=== PATIENT | female | born 1965 | race Caucasian/White ===

== ENCOUNTER → 2017-08-17 08:45 | Outpatient (CLI) | payer BC, SELFPAY ==
--- NOTE | 2017-08-17 08:46 | MM_ITS ---
MM Dig screening mamm BI w/CAD CAD Screening ORDERING PHYSICIAN : Stevan Martinez MD PATIENT AGE: 52 years GENDER: Female COMPARISON: Previous mammograms: January 2016 and January 2014 and July 2011 INDICATION: Routine screening. Patient does taking female hormones.. No new complaints. Family history maternal grandmother and maternal great grandmother with breast cancer. TECHNIQUE: Standard CC and MLO images were obtained. R2 CAD reviewed. Added left axillary cc view included on left FINDINGS: Prior films are helpful and supportive stability CAD computer review highlights no new areas concern in either breast RIGHT BREAST:No significant new findings. Follow-up one year LEFT BREAST:No significant new findings The long-standing asymmetric island of glandular tissue at the far axillary left breast is again noted and stable .....IMPRESSION: ... Stable bilateral mammogram with no significant new findings. Stable asymmetry. Follow-up one year recommended BI-RADS Category: 2 Benign Finding(s) RECOMMENDED FOLLOW-UP: 1YR - 1 YEAR FOLLOW-UP (A letter has been sent to the patient regarding results of the study.)
== END ==
PROVIDERS: Family Provider Obstetrics & Gynecology; PCP Obstetrics & Gynecology; Visit Provider Obstetrics & Gynecology
DX: Z12.31 Encounter for screening mammogram for malignant neoplasm of breast (principal)
CPT/HCPCS: 77067

== ENCOUNTER → 2017-09-12 09:55 | Outpatient (CLI) | payer BC, SELFPAY ==
[2017-09-12 12:32] LABS: Glucose,Random 89 mg/dL (70-110)
== END ==
PROVIDERS: Family Provider Obstetrics & Gynecology; PCP Obstetrics & Gynecology; Visit Provider Obstetrics & Gynecology
DX: E11.9 Type 2 diabetes mellitus without complications (principal)
CPT/HCPCS: 36415; 82947

== ENCOUNTER → 2017-12-28 14:57 | Outpatient (CLI) | payer BC, SELFPAY ==
[2018-01-01 12:53] LABS: Estradiol 24.6 pg/mL (.)
== END ==
PROVIDERS: PCP Family Medicine; Visit Provider Obstetrics & Gynecology
DX: E25.9 Adrenogenital disorder, unspecified (principal)
CPT/HCPCS: 36415; 82670

== ENCOUNTER 2021-05-07 12:39 | Emergency (ER) | payer BC, SELFPAY ==
[2021-05-07 15:14] VITALS: BP 147/96; PULSE 72; RESP 20; TEMP 36.8; O2SAT 98; BMI 25.4
--- NOTE | 2021-05-07 15:23 | HMH.EDUTC ---
[facility] [place] Clinical Impression: Viral syndrome, Exposure to COVID-19 virus Pharyngitis Qualifiers: Pharyngitis/tonsillitis etiology: unspecified etiology Qualified Code(s): J02.9 - Acute pharyngitis, unspecified Disposition: Home, Self-Care Condition on Discharge: Good Instructions: DI for Pharyngitis/Tonsillopharyngitis -- Child, DI for COVID-19 (Suspected or Confirmed ), Preventing the Spread of Coronavirus Discharge Instructions Additional Instructions: Drink plenty of fluids. Take tylenol or ibuprofen for pain or fever. Take the medications as directed. Follow up with your regular doctor. GO TO THE ER FOR ANY WORSENING SYMPTOMS Quarantine until you know the results of your covid-19 test. If it is positive, the health department should call you and give you further instructions about your length of Quarantine and other things. Notify your school or workplace of your results and follow their instructions regarding return to work/school. Prescriptions: Benzonatate [Benzonatate 100mg cap] 100 mg PO TIDP PRN #30 cap PRN Reason: Cough Transmission Status: Pending to [facility] methylPREDNISolone [Medrol] 4 mg PO DIRECTED 6 Days #21 packet Transmission Status: Pending to [facility] Cefdinir [Omnicef 300mg Capsule] 300 mg PO BID #20 cap Transmission Status: Pending to [facility] Referrals: Keny Pate [Primary Care Provider] - Forms: Work/School Release Time of Disposition: 15:43 Medical Decision Making - Medical Records Medical records reviewed: No: I reviewed the patient's medical records. - [place] Inquiry Pt receiving controlled substance: No Vital Signs: 05/07/21 15:14 Temperature 98.2 F Temperature Source Oral Pulse Rate [Right Radial] 72 Respiratory Rate 20 Blood Pressure [Right Arm] 147/96 H Blood Pressure Mean [Right Arm] 113 Blood Pressure Source [Right Arm] Automatic Cuff Blood Pressure Position [Right Arm] Sitting 02 Sat by Pulse Oximetry 98 Oxygen Delivery Method Room Air - Lab Data Lab results reviewed: Yes: I reviewed the patient's lab results. Lab Results 05/07/21 15:07: Strep Scn Rapid Clinic Negative Orders (Tests/Meds): ORDERS Category Date Time Status Covid-19 Nasal PCR ([facility]) Routine Lab 05/07/21 15:07 Ordered Strep Screen Confirmation Stat Micro 05/07/21 15:07 Received [facility] [place] - General Stated complaint: sore throat, weakness, soa, headache abdominal stan Time Seen by Provider: 05/07/21 15:23 Mode of Arrival: Ambulatory Limitations: No Limitations Description of Symptoms (Recalled from Triage Doc. by RN): pt c/o sore throat, jacek ear pain, head congestion, v/d since Monday of this week. Pt reports exposure to covid in the past 2 weeks HEENT Symptoms (Recalled from RN notes): Yes (c/o jacek ear pain, head congestion and sore throat) Resp Symptoms (Recalled from RN notes): No Skin Symptoms (Recalled from RN notes): No MS Symptoms (Recalled from RN notes): No Functional Status (Recalled from RN notes): n/a - History of Present Illness Provider Complaint: She states that she has had a sore throar for the past 4 days. She has been chilling and feeling bad also. She started having chest congestion and a cough yesterday. She was exposed to covid-19 last week. She has not been vaccinated against covid-19. She has a history of copd. - Related Data Home Medications Medication Instructions Recorded Confirmed estradiol 1 g VAGINAL ONCE 05/11/17 pyridoxine (vitamin B6) 25 mg 25 mg PO QDAY 05/11/17 tablet Previous Rx's Medication Instructions Recorded Benzonatate [Benzonatate 100mg 100 mg PO TIDP PRN #30 cap 05/07/21 cap] Cefdinir [Omnicef 300mg Capsule] 300 mg PO BID #20 cap 05/07/21 methylPREDNISolone [Medrol] 4 mg PO DIRECTED 6 Days #21 05/07/21 packet Allergies Allergy/AdvReac Type Severity Reaction Status Date / Time Erythromycin Allergy Unknown
[2021-05-07 15:27] LABS: UTC Strep Screen (Rapid) Negative (Negative)
[2021-05-07 15:45] VITALS: BP 147/96; PULSE 72; RESP 20; TEMP 36.8; O2SAT 98
== END 2021-05-07 15:53 | disposition home or self-care (01) ==
PROVIDERS: Emergency Provider Nurse Practitioner Family; PCP Family Medicine
DX: B34.9 Viral infection, unspecified (principal); Z20.822 Contact with and (suspected) exposure to COVID-19; J44.9 Chronic obstructive pulmonary disease, unspecified; Z88.0 Allergy status to penicillin
CPT/HCPCS: 87880; 99203; C9803; G0463; U0003; U0005